=== PATIENT | female | born 1950 | race Caucasian/White ===

== ENCOUNTER 2016-12-15 09:29 | Day surgery (SDC) | payer OTHER ==
[2016-12-13 13:18] LABS: HEMATOCRIT 44.5 % (36.0-48.0); HEMOGLOBIN 14.8 g/dL (12.0-16.0)
--- NOTE | ~2016-12-15 | OP ---
Record Of Operation [facility] [address] [place]. [address] NAME: ANGELITA OLEARY : 54 STATUS : REG [facility]#: [id number] AGE: 66 ADM/REG DATE : 12/15/16 MR#: [id number] REPORT SERV DATE: 12/15/16 DICTATED BY: TOMER SEPULVEDA DATE: 12/15/16 REPORT STATUS : Draft TRANSCRIBED BY: MODGerri DATE: 12/15/16 DATE OF PROCEDURE: POSTOPERATIVE DIAGNOSIS: Right breast cancer. POSTOPERATIVE DIAGNOSIS: Right breast cancer. PROCEDURE: 1. Placement of a left chest wall venous port, internal jugular. 2. Intraoperative ultrasound for vein access. 3. Intraoperative fluoroscopy with interpretation. INDICATION FOR THE PROCEDURE: Ms. Oleary is a very healthy 66-year-old female, with a very aggressive right breast cancer. She has seen Medical Oncology and neoadjuvant chemotherapy has been recommended. A port will be placed today. OPERATIVE FINDINGS: After appropriate consent was on the chart, the patient was taken to the operating room in supine position. She was placed under general anesthesia without any complications. The anesthesiologist decided to use general anesthetic as the patient had oral CT contrast for her systemic workup earlier today. The safety of the patient did make the general anesthetic necessary. The ultrasound was utilized to visualize the left internal jugular vein, it was in the normal anatomic position and patent. The bilateral chest wall and neck were prepped and draped in sterile fashion. A draped ultrasound probe was used to visualize the left internal jugular vein which was accessed with a single pass of the Seldinger needle. Nonpulsatile venous appearing blood was noted in the syringe. The syringe was removed and the wire passed with ease. Fluoroscopy noted the wire to be in good position in the vena cava. The wire was secured to the drapes for later use and the port pocket was created after the area had been anesthetized. A #15 blade was utilized to make the incision. Bovie cauterization utilized to create the pocket. Stay sutures were placed at the 3 o'clock and 9 o'clock position of 3-0 Prolene. The sutures were secured for later use. An #11 blade was utilized to lengthen the rober in the neck. The metal tunneling device was utilized to create a tunnel between the port pocket and the vein access site in the neck. The catheter was pulled through. At this point, the vein was dilated. The dilator and tear-away sheath were placed over the wire with constant movement of the wire, the vein was dilated. Constant fluoroscopy was utilized at this point, as there was some slight resistance. The dilator and wire were removed leaving the sheath in the vein. The catheter was passed into the vein under direct fluoroscopy guidance and the sheath torn away. The catheter was pulled back to the atriocaval junction. It was secured to the port at the port pocket, after being cut for length. The securing device was utilized. The port was then secured into the port pocket with two stay sutures. The wound was irrigated, the port noted to aspirate and flush with ease. It was packed with heparinized saline. The wound was closed in two layers of Monocryl. The skin was cleansed and dried. Dermabond overlaid, once the Dermabond had dried, Telfa and Tegaderm were placed on the patient. A single suture was utilized to reapproximate the rober in the neck and it was dressed as above. The patient was Record Of [address] [address] NAME: ANGELITA OLEARY : 54 STATUS : REG [facility] [place] PAT#: [id number] AGE: 66 ADM/REG DATE : 12/15/16 MR#: [id number] REPORT SERV DATE: 12/15/16 DICTATED BY: TOMER SEPULVEDA. DATE: 12/15/16 REPORT STATUS : Draft TRANSCRIBED BY: MODGerri DATE: 12/15/16 awoken from anesthesia without complication and taken the PACU in stable condition for recovery. All counts were correct at the end of the case. ESTIMATED BLOOD LOSS: 10 mL. COMPLICATIONS: None. SPECIMENS: None. The patient will have a chest x-ray in recovery to ensure good positioning of the catheter and no pneumo or hemothorax. DAWN/NE Tomer Sepulveda MD / [id number] CC: MD SHARDA Allen J. MICHAEL Edward Arrowsmith, M.D. [facility]
[~2016-12-15 09:29] MED LIST: BEN25 PO; BIOTIN5 MG PO; C5; DOX10 PO; PCET PO; ZOFRAN4; [UNRECOGNIZED DRUG - REMARK] PO
[2017-06-13] MEDS ORDERED: LEXAPRO10 PO (14:48)
[2017-06-13] MEDS ORDERED: COMP10B PO (14:48)
[2017-06-16] MEDS ORDERED: ALEVE220 MG PO (10:26)
[2017-06-16] MEDS ORDERED: MOMUD PO (10:27)
[2017-06-16] MEDS ORDERED: NEUR100 PO (10:28)
[2017-06-16] MEDS ORDERED: AT25 PO (10:29)
[2017-06-16] MEDS ORDERED: K500 PO (10:29)
[2017-06-16] MEDS ORDERED: PERCOCET 7.5/321 TAB PO (10:30)
== END 2016-12-15 17:48 | disposition home or self-care (01) ==
LOC: SDC 09:29
PROVIDERS: Surgery Surgical Oncology
PROC: 05HM33Z Insertion of Infusion Device into Right Internal Jugular Vein, Percutaneous Approach (ICD-10-PCS; 2016-12-15)
PROC: B513YZA Fluoroscopy of Right Jugular Veins using Other Contrast, Guidance (ICD-10-PCS; 2016-12-15)
PROC: B543ZZA Ultrasonography of Right Jugular Veins, Guidance (ICD-10-PCS; 2016-12-15)
PROC: 0JH60XZ Insertion of Tunneled Vascular Access Device into Chest Subcutaneous Tissue and Fascia, Open Approach (ICD-10-PCS; principal; 2016-12-15 11:15)
DX: C50.911 Malignant neoplasm of unspecified site of right female breast (principal); F41.9 Anxiety disorder, unspecified; Z80.3 Family history of malignant neoplasm of breast; Z79.899 Other long term (current) drug therapy; Z96.652 Presence of left artificial knee joint; Z98.890 Other specified postprocedural states
CPT/HCPCS: 71010; 77001; 85014; 85018; 93005; C1751; J0330; J0690; J2250; J2405; J3010